=== PATIENT | female | born 1970 | race Caucasian/White ===

== ENCOUNTER 2017-08-19 10:08 | Emergency (ER) | payer BC ==
[2017-08-19 10:29] VITALS: BP 141/86
--- NOTE | 2017-08-19 11:45 | UC ---
Throat Pain/Nasal Marc HPI - HPI Summary HPI Summary: 47 female with the onset of left facial (cheek) pain after eating a small piece of cake awoke this AM with left facial swelling hx of thyoid CA - History of Current Complaint Chief Complaint: UCGeneralIllness Stated Complaint: FACIAL SWELLING/PAIN Time Seen by Provider: 08/19/17 11:27 Hx Obtained From: Patient Hx Last Menstrual Period: n/a Onset/Duration: Sudden Onset, Lasting Hours Severity: Mild Pain Intensity: 2 Pain Scale Used: 0-10 Numeric Associated Signs & Symptoms: Positive: Negative - Epiglottits Risk Factors Epiglottis Risk Factors: Negative - Allergies/Home Medications Allergies/Adverse Reactions: Allergies Allergy/AdvReac Type Severity Reaction Status Date / Time No Known Allergies Allergy Verified 08/19/17 10:28 Home Medications: Home Medications Cholecalciferol [Vitamin D] 1,000 unit PO DAILY 08/19/17 [History Confirmed ] Levothyroxine TAB* [Synthroid TAB*] 175 mcg PO 0600 08/19/17 [History Confirmed 08/19/17] Loratadine 10 mg PO DAILY 08/19/17 [History Confirmed 08/19/17] Losartan Potassium & Hydrochlo [Hyzaar 100/12.5 mg] 1 tab PO DAILY 08/19/17 [ History Confirmed 08/19/17] PMH/Surg Hx/FS Hx/Imm Hx Previously Healthy: Yes - Surgical History Surgical History: Yes Surgery Procedure, Year, and Place: leg operation. hysterectomy 2009. thyroidectomy 2017 - Family History Known Family History: Positive: Hypertension, Diabetes - Social History Alcohol Use: Rare Substance Use Type: None Smoking Status (MU): Never Smoked Tobacco Review of Systems Constitutional: Negative Skin: Negative Eyes: Negative ENT: Negative Respiratory: Negative Cardiovascular: Negative Gastrointestinal: Negative Genitourinary: Negative Motor: Negative Neurovascular: Negative Musculoskeletal: Negative Neurological: Negative Psychological: Negative Is Patient Immunocompromised?: No All Other Systems Reviewed And Are Negative: Yes Physical Exam Triage Information Reviewed: Yes Appearance: Well-Appearing, No Pain Distress, Well-Nourished Vital Signs: Initial Vital Signs Temp 98.2 F 08/19/17 10:24 Pulse 61 08/19/17 10:24 Resp 14 08/19/17 10:24 BP 141/86 08/19/17 10:24 Pulse Ox 100 08/19/17 10:24 Vital Signs Reviewed: Yes Eyes: Positive: Conjunctiva Clear ENT: Positive: Hearing grossly normal, TMs normal, Uvula midline, Other - tender /swollen left parotid gland. Negative: Nasal congestion, Nasal drainage, Tonsillar swelling, Tonsillar exudate, Trismus, Muffled voice, Hoarse voice, Sinus tenderness Neck exam: Normal Neck: Positive: Enlarged Nodes @ - left ant cervical Respiratory: Positive: Lungs clear, Normal breath sounds Cardiovascular: Positive: RRR, No Murmur Musculoskeletal: Positive: ROM Intact, No Edema Neurological: Positive: Alert Psychological Exam: Normal Skin Exam: Normal Throat Pain/Nasal Course/Dx - Differential Dx/Diagnosis Provider Diagnoses: left parotid gland swelling. suspect sialadentitis Discharge - Discharge Plan Condition: Stable Disposition: HOME Prescriptions: Cephalexin CAP* [Keflex CAP*] 500 mg PO QID #28 cap Patient Education Materials: Sialoadenitis (ED) Referrals: Anna HOLLOWAY,Argelia Hays [Primary Care Provider] - 3 Days Additional Instructions: warm compresses RECHECK FOR NEW OR WORSENING SYMPTOMS blood test for MUMPS is pending recheck with your provider sometime this weak if not better trever or benson
--- NOTE | 2017-08-19 13:17 | UC ---
Progress - Progress Note Progress Note: [facility] demands Rapid influenza test and buccal swab PCR I will order these per their request
== END 2017-08-19 12:32 | disposition home or self-care (01) ==
LOC: UCCORT 10:08
DX: K11.8 Other diseases of salivary glands (principal); I10 Essential (primary) hypertension
CPT/HCPCS: 87502; 99202; G0463